=== PATIENT | male | born 1980 | race African-American/Black ===

== ENCOUNTER 2024-10-10 08:14 | Emergency (ER) | payer MEDICARE ==
[~2024-10-10] VITALS: Ht 198.1 cm; Wt 103.9 kg
[2024-10-10 08:14] VITALS: PULSE 98; RESP 16; TEMP 98; O2SAT 100
[2024-10-10] MEDS: NEOMYCIN/POLYMYX/HYDROC (OTIC) 10 ML BTL LEFT EAR SCH (08:46)
== END 2024-10-10 09:00 | disposition home or self-care (01) ==
LOC: ER 08:18
DX: H60.92 Unspecified otitis externa, left ear (principal); I10 Essential (primary) hypertension; H40.9 Unspecified glaucoma; M54.9 Dorsalgia, unspecified; G89.29 Other chronic pain; F17.210 Nicotine dependence, cigarettes, uncomplicated
CPT/HCPCS: 99282